=== PATIENT | female | born 1985 | race Caucasian/White ===

== ENCOUNTER 2018-09-30 15:52 | Emergency (ER) | payer OTHER ==
[~2018-09-30] VITALS: Ht 167.6 cm; Wt 74.8 kg
[2018-09-30 16:17] VITALS: BP 110/69
[2018-09-30] MEDS ORDERED: SULF1TAB24 PO (16:17)
--- NOTE | 2018-09-30 16:18 | PHYS DOC ---
Adult General Chief Complaint Chief Complaint: ABSCESS HPI HPI 33 y/o female presents to ER for c/o abscess lt axillary which she noticed on Saturday. She reports the area has worsened since Saturday with increased swelling. Patient denies fever, fatigue, or nausea or vomiting. Patient is currently on her menstrual cycle. She denies numbness or tingling in left upper extremity. Review of Systems Review of Systems Constitutional: Denies fever or chills. Denies fatigue Eyes: Denies change in visual acuity, redness, or eye pain [] HENT: Denies nasal congestion or sore throat [] Respiratory: Denies cough or shortness of breath [] Cardiovascular: No additional information not addressed in HPI [] GI: Denies abdominal pain, nausea, vomiting, bloody stools or diarrhea [] : Denies dysuria or hematuria [] Musculoskeletal: Denies back/neck pain or joint pain [] Integument: Denies rash. Reports abscess left axillary Neurologic: Denies headache, focal weakness or sensory changes [] All other systems were reviewed and found to be within normal limits, except as documented in this note. Physical Exam Physical Exam Constitutional: Well developed, well nourished, no acute distress, non-toxic appearance. [] HENT: Normocephalic, atraumatic, bilateral external ears normal, oropharynx moist, no oral exudates, nose normal. [] Eyes: PERRLA, EOMI, conjunctiva normal, no discharge. [] Neck: Normal range of motion, no tenderness, supple, no stridor. [] Cardiovascular:Heart rate regular rhythm, no murmur [] Lungs & Thorax: Bilateral breath sounds clear to auscultation [] Abdomen: Bowel sounds normal, soft, no tenderness, no masses, no pulsatile masses. [] Skin: Warm, dry, no erythema, no rash. [] Back: No tenderness, no CVA tenderness. [] Extremities: No tenderness, no cyanosis, no clubbing, ROM intact, no edema. [] Neurologic: Alert and oriented X 3, normal motor function, normal sensory function, no focal deficits noted. [] Psychologic: Affect normal, judgement normal, mood normal. [] EKG EKG [] Radiology/Procedures Radiology/Procedures [] Course & Med Decision Making Course & Med Decision Making [] Dragon Disclaimer Dragon Disclaimer This electronic medical record was generated, in whole or in part, using a voice recognition dictation system. Departure Departure Impression: Primary Impression: Abscess Disposition: 01 HOME, SELF-CARE Condition: STABLE Referrals: NO PCP (PCP) Patient Instructions: Abscess Additional Instructions: On compress to left armpit 3-4 times a day for 20-30 minutes. Tylenol and/or ibuprofen as needed for pain as directed on container. Bactroban ointment to abscess site 3 times a day. Keep your scheduled appointment on for reevaluation of the abscess. If symptoms worsen return to ER for further evaluation and care. Scripts Sulfamethoxazole/Trimethoprim (BACTRIM DS TABLET) 1 Each Tablet 1 TAB PO BID, #14 TAB 0 Refills Prov: REANNA JEFFERSON APRN 09/30/18 REANNA JEFFERSON APRN Sep 30, 2018 16:18
[2018-09-30] MEDS ORDERED: MUPIROCIN 2 % TOPICAL CREAM 15GM TUBE. TP ONE (16:30)
== END 2018-09-30 16:37 | disposition home or self-care (01) ==
LOC: ER 15:52
DX: L02.412 Cutaneous abscess of left axilla (principal)
CPT/HCPCS: 99283